=== PATIENT | female | born 1990 | race Caucasian/White ===

== ENCOUNTER 2023-03-06 10:00 | Emergency (ER) | payer MEDICAID, SELFPAY ==
[2023-03-06 10:15] VITALS: BP 141/76; PULSE 67; RESP 20; TEMP 36.6; O2SAT 98; BMI 38.2
[2023-03-06 10:28] LABS: UTC Strep Screen (Rapid) Negative (Negative)
[2023-03-06 10:29] VITALS: BP 141/76; PULSE 67; RESP 20; TEMP 36.6; O2SAT 98
--- NOTE | 2023-03-06 10:30 | EXP.UTC ---
Discharge Plan Disposition Patient Disposition: Home, Self-Care Condition: Good Prescriptions Prescriptions: New azithromycin [Zithromax] 250 mg tablet 250 mg PO UD DOSE PK Qty: 6 0RF Rx Instructions: Take two (2) tablets today, then one (1) tablet days #2 thru #5 methylprednisolone 4 mg Tablets,Dose Pack 4 mg PO DIRECTED Qty: 21 0RF bjkvacposfcousv-ztkojcciy-DD [Bromfed DM] 2-30-10 mg/5 mL Syrup 5 ml PO Q6H PRN (Reason: Cough) Qty: 240 0RF Referrals Follow up/Referrals: Charisma Santoro PA [Primary Care Provider] - See instructions Activity Restrictions/Add. Instructions Additional Instructions/Restrictions: Drink plenty of fluids. Take tylenol or ibuprofen for pain or fever. Take the medications as directed. Follow up with your regular doctor. GO TO THE ER FOR ANY WORSENING SYMPTOMS Clinical Impressions Clinical Impression: Sinusitis, Acute viral syndrome Stand Alone Forms Stand Alone Forms: Work/School Release Instructions Patient Instructions: DI for Sinusitis, Coronavirus Disease 2019, Preventing the Spread of Coronavirus Discharge Instructions Discharge ED Provider: Salomón Srinivasan [facility] General Stated complaint: cough,runny nose, loosing voice Mode of Arrival: Ambulatory Source of Information: Patient Limitations: No Limitations Time Seen by Provider: 03/06/23 10:30 Description of Symptoms (Recalled from Triage Doc. by RN): PATIENT C/O COUGH, RUNNY NOSE, AND LOSS OF VOICE THAT STARTED THIS WEEK HEENT Symptoms (Recalled from RN notes): Yes Resp Symptoms (Recalled from RN notes): Yes Skin Symptoms (Recalled from RN notes): No MS Symptoms (Recalled from RN notes): No Functional Status (Recalled from RN notes): WNL History of Present Illness Provider Complaint: She states that for the past 4 days she has had sinus congestion, scratchy sore throat, malaise and voice hoarseness. Related Data Previous Rx's Medication Instructions Recorded azithromycin 250 mg tablet 250 mg PO UD DOSE PK #6 tabs 03/06/23 (Zithromax) ywhxhhwmpmnrqss-ciibrizevenhqsr-WZ 5 ml PO Q6H PRN Cough #240 mL 03/06/23 2 mg-30 mg-10 mg/5 mL oral syrup (Bromfed DM) methylprednisolone 4 mg tablets in 4 mg PO DIRECTED #21 tabs 03/06/23 a dose pack Allergies Allergy/AdvReac Type Severity Reaction Status Date / Time baclofen Allergy Verified 03/06/23 10:23 cefaclor Allergy Verified 03/06/23 10:23 Penicillins Allergy Verified 03/06/23 10:23 Sulfa (Sulfonamide Allergy Verified 03/06/23 10:23 Antibiotics) Worker's Comp Is this a Worker's Comp case?: No [facility] Disclaimer: The information contained in this section may have been updated after the patient was seen, as this information can be updated by other users. Medical History (Updated 03/06/23 @ 10:37 by Salomón Srinivasan APRN) Anxiety Depression History of anemia Migraine Thyroid disease Surgical History (Updated 03/06/23 @ 10:22 by Trudy Gonzalez RN) History of tonsillectomy History of tympanostomy tube placement Social History Smoking Status: Never smoker alcohol intake: never current occupational status: employed Travel in the last 8 weeks: None ROS Obtained: Yes All systems reviewed & no additional complaints except as documented Constitutional Constitutional: Reports poor appetite Eyes Eyes: Reports system reviewed and no additional complaints, except as documented ENT Ears, Nose, Mouth, and Throat: Reports as per HPI Cardiovascular Cardiovascular: Reports system reviewed and no additional complaints, except as documented and Denies chest pain Respiratory Respiratory: Denies shortness of breath, Denies chest congestion, Reports cough, Denies stridor and Denies wheezing Gastrointestinal Gastrointestingal: Reports system reviewed and no additional complaints, except as documented; Denies abdominal pain, diarrhea or vomiting Musculoskeletal Musculoskeletal: Reports system revi
== END 2023-03-06 10:44 | disposition home or self-care (01) ==
PROVIDERS: Emergency Provider Nurse Practitioner Family; PCP Nurse Practitioner Family
DX: J01.90 Acute sinusitis, unspecified (principal); R53.81 Other malaise; B34.9 Viral infection, unspecified; F41.9 Anxiety disorder, unspecified; F32.A Depression, unspecified
CPT/HCPCS: 87880; 99204; 99212; G0463